=== PATIENT | female | born 1945 | race African-American/Black ===

== ENCOUNTER 2019-06-24 08:00 | Inpatient (IN) | payer OTHER ==
[2019-08-08 13:29] VITALS: BMI 20.5
[2019-08-09] MEDS ORDERED: HEPARIN NA (PORCINE) 5,000 UNITS/ML 1ML VIAL ONE (13:49)
[2019-08-09] MEDS ORDERED: THROMBIN (BOVINE) 5,000 UNIT VIAL TP ONE ×3 (13:49→16:07)
[2019-08-09] MEDS ORDERED: EPHEDRINE SULFATE/0.9% NACL/PF 50 MG/10 ML SYRINGE NR ONE (14:23)
[2019-08-09] MEDS ORDERED: DEXAMETHASONE SOD PHOSPHATE 4 MG/1 ML VIAL ONE (14:23)
[2019-08-09] MEDS ORDERED: PROPOFOL 20 ML ONE ×6 (14:23→16:06)
[2019-08-09] MEDS ORDERED: ONDANSETRON 4 MG/2 ML VIAL ONE ×2 (14:23→19:04)
[2019-08-09] MEDS ORDERED: ROCURONIUM BROMIDE 50 MG/5 ML SYRINGE ONE (14:24)
[2019-08-09] MEDS ORDERED: NEOSTIGMINE METHYLSULFATE 0.5 MG/1 ML - 10 ML MDV ONE (15:21)
[2019-08-09] MEDS ORDERED: VANCOMYCIN 1,000 MG VIAL (RESTRICTED TO ID ONLY) IVPB ONE (15:35)
[2019-08-09] MEDS ORDERED: ceFAZolin SODIUM 1 GM VIAL IVPB ONE (15:35)
[2019-08-09] MEDS ORDERED: ONDANSETRON 4 MG/2 ML VIAL IVPUSH PRN ×3 (16:16→17:29)
[2019-08-09] MEDS ORDERED: PROMETHAZINE HCL 25 MG/1 ML VIAL IVPB PRN (16:16)
[2019-08-09] MEDS ORDERED: DEXAMETHASONE SOD PHOSPHATE 4 MG/1 ML VIAL IVPUSH ONE (16:16)
[2019-08-09] MEDS ORDERED: PROMETHAZINE HCL 25 MG/1 ML VIAL IVPUSH PRN (16:16)
[2019-08-09] MEDS ORDERED: LACTATED RINGERS SOLUTION 1,000 ML IV SCH ×3 (16:30→20:40)
[2019-08-09] MEDS ORDERED: HYDROmorphone *PCA* 10MG/50ML DISP.SYRIN PCA SCH (16:30)
[2019-08-09] MEDS ORDERED: BENZOIN/ALOE VERA/STORAX/TOLU 58 ML BOTTLE ONE (17:05)
--- NOTE | 2019-08-09 17:20 | PN ---
Progress Note (short form) - Note Progress Note: 74F s/p C3-C4 anterior cervical discectomy and instrumented fusion POD #0. -Admit to ICU x 24 hrs. for airway observation; OK to discharge home or downgrade to floor if airway stable. -Maintain head of bed 30-45 degrees. -Pain medication: per anaesthesia team; oral meds (oxycodone preferred), no TOOLMAKER GRADE THREE ; NO NSAID's. -DVT PPx: -Mechanical only: EWELINA's, SCD's. -Post-op Ancef x 3 doses. -f/u AM labs. -Incentive spirometry. -PT/OT/Rehab, OOB. -WBAT B/L UE & LE. -d/c Troncoso catheter in PACU; f/u TOV (8 hours max). -Keep dressing clean & dry. -No heavy lifting (>5 lbs), bending or twisting x 6 months post op. -Start with soft diet; advance diet as tolerated. -B/L UE & LE NV checks. -Care per ICU & primary medical hospitalist teams. -Discharge planning: f/u [facility] [place] office 7-10 days post discharge; call for appointment; . Flash Antunez MD (Orthopaedic Surgery).
--- NOTE | 2019-08-09 17:26 | OP ---
Operative Note - Note: Operative Date: 08/09/19 Pre-Operative Diagnosis: 1. C3-C4 intervertebral disc herniation with myeloradiculopathy. 2. C3-C4 stenosis with neurogenic claudication. 3. Axial instability cervical spine with myofascial pain complex Operation: C3-C4 ACDF Findings: Improved IOM signals after C3-C4 decompression Implants: RTI Fortilink Tetrafuse [id number] cage. Precision Spine Slimplicity Plate: 14mm. 4 x 4x12mm screws Post-Operative Diagnosis: Same as Pre-op Surgeon: Flash Antunez It Intern: Ishan Antunez Anesthesiologist/PHOTOSTAT OPERATOR: Todd Marx Anesthesia: General Specimens Removed: C3-C4 disc Estimated Blood Loss (mls): 10 Fluid Volume Replaced (mls): 1,300 (Crystalloid) Operative Report Dictated: Yes
[2019-08-09] MEDS ORDERED: traMADol HCL 50 MG TABLET PO PRN (17:32)
--- NOTE | 2019-08-09 18:18 | OP ---
DATE OF OPERATION: DATE OF DICTATION: 08/09/2019 SURGEON: Flash Antunez MD BUNCH TRIMMER MOLD: Ishan Antunez MD PREOPERATIVE DIAGNOSIS: C3-4 disk prolapse with spinal stenosis, cervical spondylogenic myelopathy. POSTOPERATIVE DIAGNOSIS: Osteophyte disk complex stenosis, C3-4 with cervical spondylogenic myelopathy. PROCEDURES PERFORMED: 1. Anterior cervical diskectomy, C3-4. (59516) 2. Partial corpectomy, C3, partial corpectomy, C4. (81703, 06255) 3. Insertion of interbody cage with bone graft and anterior arthrodesis. (98215 ) 4. Anterior plating, C3-4. (59285) 5. Bone autograft (21857). 6. Bone allograft (30229). 7. Microsurgical Dissection (50006). ANESTHESIA: General. ANTIBIOTICS GIVEN: 2 g Ancef, 1 g vancomycin, 10 mg of Decadron preop. OPERATION DETAILS: With the patient in supine position, a bolster was placed behind the scapula. Prior to positioning as outlined above with the neck extended, motor evoked potentials were exhibited and then these were repeated once the patient was placed into the extended position the first one being with the patient in a neutral alignment position. No changes were observed by the neuromonitoring team. With the passage of time, however, this changed where biceps and triceps numbers seemed to drop down. SSEP monitoring remained neutral. The skin was prepped with Betadine scrub solution, wiped off with alcohol, DuraPrep applied. The window drape applied. Time-out was called. Imaging was available for intraoperative evaluation. An oblique incision was made in the lines of [place]. This was about a centimeter above the cricothyroid interval. The skin subcutaneous tissue was opened. The platysma was noted. This was transected. This took us directly to the lateral border of the strap muscles in the plane of what we call the fuzzies, that is the plane between the viscera and vessels. With digital palpation, the anterior vertebral bodies were palpated. Using a peanut, this plane was expanded down to the prevertebral fascia. A marker pin was placed into the C4-5 disk so that we knew exactly where the C3- 4 disk was. That is 1 level above that. The Bovie was utilized in order to free all the soft tissue off the anterior vertebral bodies and lift the longus colli approximately 1/2 cm off the bone to receive the teeth of the medial, lateral retractors. Excellent visualization achieved. [place] pins were placed in C3 and C4. Verification of the pin placement was on the lateral fluoroscopic x-ray. This confirmed our levels for dissection. Unipolar Bovie was utilized to disconnect the annulus from the bone bed anteriorly. Using a curette, the entire disk was resected. Using a 40-mm ascencion-tip bur, a rectangle was cut out of the bone thus performing a partial corpectomy at C3 and C4. This opened up the space nicely. Also, the posterior bone was resected using Kerrisons thus completing a partial corpectomy of C3 and C4 appropriately. The entire space opened. Slight, gentle, increased distraction was then applied. The posterior longitudinal ligament and remaining disk noted. This was resected using a No. 1, 1.5, and 2-mm [place] rongeurs freeing the cord completely. At that point, the neuromonitoring team after running a repeat motor evoked potentials revealed marked improvement in all settings, and that was reported as a most efficacious decompression having been achieved. The distraction was measured size 8, and a size 8-mm Fortilink spacer inserted. Bone graft was placed in the interspace. This was bone graft harvested from the patient herself; 1 mL of allograft DBX putty was used to help congeal the putty as well. This was inserted inside the actual cage. The distraction device was removed. The ligamentotaxis allowed the bony vertebral bodies to collapse onto the cage bringing about a snug fit. The cage was verified on lateral fluoroscopic x-ray. A 14-mm Simplicity plate was then applied fixed with 12 x 4-mm screws. Solid fixation achieved. The screw devices were locked into position by the locking device on the cage. The wounds were thoroughly lavaged out. Hemostasis was completely achieved. Valsalva maneuver at 30 cm revealed no extra bleeding. The wounds were then lavaged again and closed as follows: Platysma and investing lateral fascia No. 2-0 Vicryl, skin 3-0 Monocryl with Steri-Strips. Operation went extremely well. No complications. MD DONALDO Fierro/[id number] [facility]
--- NOTE | 2019-08-09 21:01 | CONSULT ---
Consultation: REQUESTING PROVIDER: Dr. Antunez CONSULT REQUEST: We have been asked to medically evaluate this patient for post op airway observation. HISTORY OF PRESENT ILLNESS: 74 yo f w/ PMH HTN, osteoporosis who is s/p C3-C4 anterior cervical discectomy and instrumented fusion POD #[address] Antunez. Patient lying in bed in NAD c/o soreness in the neck. no other complaints. History limited as the patient is drowsy post op. REVIEW OF SYSTEMS: unable to obtain as patient is drowsy post op. PHYSICAL EXAMINATION Vital Signs - 24 hr 08/09/19 08/09/19 08/09/19 10:32 10:53 17:27 Temperature 98.2 F 96.8 F L Pulse Rate 76 65 Respiratory 16 14 Rate Blood Pressure 121/59 L 121/61 O2 Sat by Pulse 100 100 Oximetry (%) 08/09/19 08/09/19 08/09/19 17:30 17:45 18:00 Temperature Pulse Rate 67 66 73 Respiratory 14 12 20 Rate Blood Pressure 120/76 123/63 129/68 O2 Sat by Pulse 100 100 100 Oximetry (%) 08/09/19 08/09/19 08/09/19 18:15 18:30 18:45 Temperature Pulse Rate 67 65 69 Respiratory 10 11 17 Rate Blood Pressure 132/66 133/66 135/70 O2 Sat by Pulse 100 100 100 Oximetry (%) 08/09/19 08/09/19 08/09/19 19:00 19:15 19:30 Temperature Pulse Rate 55 L 55 L 63 Respiratory 10 10 13 Rate Blood Pressure 125/66 125/66 127/60 O2 Sat by Pulse 100 100 100 Oximetry (%) 08/09/19 08/09/19 19:45 20:00 Temperature 98.2 F Pulse Rate 68 62 Respiratory 15 16 Rate Blood Pressure 128/63 126/62 O2 Sat by Pulse 100 100 Oximetry (%) GENERAL: drowsy but easily rousable to voice. surgical site dressing in midline neck clean/dry/intact HEAD: Normal with no signs of trauma. EYES: Pupils equal, round and reactive to light, extraocular movements intact, sclera anicteric, conjunctiva clear. No lid lag. NECK: ROM limited 2/2 pain. midline surgical site as described above LUNGS: Breath sounds equal, clear to auscultation bilaterally. No wheezes, and no crackles. No accessory muscle use. No stridor heard over the trachea HEART: Regular rate and rhythm, normal S1 and S2 without murmur, rub or gallop. ABDOMEN: Soft, nontender, not distended, normoactive bowel sounds, no guarding, no rebound, no masses. No hepatomegaly or splenomegaly. LOWER EXTREMITIES: 2+ pulses, warm, well-perfused. No calf tenderness. No peripheral edema. NEUROLOGICAL: limited 2/2 patient drowsiness Laboratory Results - last 24 hr 08/09/19 09:32 Blood Type B POSITIVE Antibody Screen Negative Active Medications Generic Name Dose Route Start Last Admin Trade Name Freq PRN Reason Stop Dose Admin Amlodipine Besylate 10 mg 08/10/19 10:00 Norvasc - PO DAILY [facility] Diphenhydramine HCl 12.5 mg 08/09/19 16:16 Benadryl Injection - IVPUSH ONCE PRN FOR ITCHING Donepezil HCl 5 mg 08/10/19 10:00 Aricept - PO DAILY [facility] Fentanyl 50 mcg 08/09/19 16:16 08/09/19 19:05 Sublimaze Injection - IVPUSH 50 mcg [id number] PRN Administration PAIN-PACU ORDER X 4 DOSES ONLY Hydrochlorothiazide 25 mg 08/10/19 10:00 Hctz - PO DAILY [facility] Hydromorphone HCl 10 mg 08/09/19 16:30 Hydromorphone 10 Mg/50 Ml-Ns ACCIDENT EXAMINER 08/16/19 16:16 ACCIDENT EXAMINER [facility] Protocol Cefazolin Sodium 1 gm in 50 mls @ 100 mls/hr 08/09/19 23:00 Ancef 1 Gm Premixed Ivpb - IVPB 08/10/19 11:29 Q6H [facility] Lactated Ringer's 1,000 mls @ 83 mls/hr 08/09/19 20:40 Lactated Ringers Solution IV ASDIR [facility] Metoprolol Tartrate 100 mg 08/10/19 10:00 Lopressor - PO DAILY [facility] Ondansetron HCl 4 mg 08/09/19 17:29 Zofran Injection IVPUSH Q6H PRN NAUSEA AND/OR VOMITING Promethazine HCl 12.5 mg 08/09/19 16:16 Phenergan Injection - IVPB Q6H PRN NAUSEA AND/OR VOMITING Promethazine HCl 12.5 mg 08/09/19 16:16 Phenergan Injection - IVPUSH Q6H PRN NAUSEA-FOR RESCUE AFTER 15 MIN Tramadol HCl 50 mg 08/09/19 17:32 Ultram - PO Q6H PRN PAIN LEVEL 6-10 ASSESSMENT/PLAN: 74 yo f w/ PMH HTN, osteoporosis who is s/p C3-C4 anterior cervical discectomy and instrumented fusion POD #[address] Antunez. #Neuro: -drowsy but easily rousable to voice. -moving all 4 limbs spontaneously -neuro checks #Pulmonary -Incentive spirometry [id number] -close airway observation overnight -saturating well on 2L NC #MSK -POD 0 C3-C4 anterior cervical discectomy and instrumented fusion -neurovascularly intact -post op management as per Dr. Antunez -Pain Ctrl with tramadol/oxycodone. NO ACCIDENT EXAMINER, NO NSAIDS -PT/OOB -HOB elevated 30-45 degrees #GI -soft diet; advance as tolerated #ID -post op ancef x 3 doses #FEN -LR @ 83 -will check lytes in am; replete PRN -soft diet #Prophy -Mechanical DVT prophylaxsis only #Dispo -observe post op in ICU -for downgrade to m/s if no events Visit type - Emergency Visit Emergency Visit: No - New Patient This patient is new to me today: Yes Date on this admission: 08/09/19 - Critical Care Critical Care patient: Yes Total Critical Care Time (in minutes): 40 Critical Care Statement: The care of this patient involved high complexity decision making to prevent further life threatening deterioration of the patient 's condition and/or to evaluate & treat vital organ system(s) failure or risk of failure. ATTENDING PHYSICIAN STATEMENT I saw and evaluated the patient. I reviewed the resident's note and discussed the case with the resident. I agree with the resident's findings and plan as documented. SUBJECTIVE: OBJECTIVE: ASSESSMENT AND PLAN:
[2019-08-09] MEDS ORDERED: CEFAZOLIN 1 GM/D5W 1 GM/50 ML BAG IVPB SCH (23:00)
[2019-08-09] MEDS ORDERED: ceFAZolin SODIUM 1 GM VIAL ONE (23:08)
[2019-08-09] MEDS ORDERED: DEXTROSE 5%-WATER - 50 ML IVPB ONE (23:08)
[2019-08-09] MEDS: CEFAZOLIN 1 GM in DEXTROSE 5%-WATER - 50 ML IVPB SCH (23:12)
[2019-08-10] MEDS ORDERED: CEFAZOLIN 1 GM in DEXTROSE 5%-WATER - 50 ML IVPB SCH (05:00)
[2019-08-10] MEDS ORDERED: ceFAZolin SODIUM 1 GM VIAL ONE ×4 (06:27→21:45)
[2019-08-10] MEDS ORDERED: DEXTROSE 5%-WATER - 100 ML IVPB ONE (06:27)
[2019-08-10] MEDS: CEFAZOLIN 1 GM in DEXTROSE 5%-WATER - 50 ML IVPB SCH ×4 (06:32→21:48)
--- NOTE | 2019-08-10 08:31 | PN ---
Progress Note (short form) - Note Progress Note: Anesthesia/pain Pt seen and examined S:Alert and awake comfortable O: Vital Signs Temperature 98.3 F 08/10/19 02:00 Pulse Rate 75 08/10/19 06:00 Respiratory Rate 18 08/10/19 06:00 Blood Pressure 120/62 08/10/19 06:00 O2 Sat by Pulse Oximetry (%) 100 08/09/19 21:00 A/P: s/p ACDF C3-C4 Doing well post op Continue current care Salas Martinez MD
[2019-08-10] MEDS ORDERED: PT OWN MED DRAWER 7, Y5N ONE (09:19)
[2019-08-10] MEDS ORDERED: DEXTROSE 5%-WATER - 50 ML IVPB ONE ×3 (09:19→21:46)
--- NOTE | 2019-08-10 09:58 | PN ---
Physical Exam: SUBJECTIVE: Patient seen and examined at bedside- no acute events overnight; patient states that she is feeling well denies any pain;l no dysphagia no problems breathing; has passed gas but not BM yet OBJECTIVE: Vital Signs Period Temp Pulse Resp BP Sys/Hatch Pulse Ox Last 24 Hr 96.8 F-98.3 F 55-78 10 117-135/59-76 97-100 GENERAL: The patient is awake, alert, and fully oriented, in no acute distress.. EYES: PEERLA; EOMI; no scleral icterus . NECK: no JVD; no lymphadenopathy. LUNGS: CTA B/L; no rales, rhonchi or wheezing HEART: Regular rate and rhythm, S1, S2 without murmur, rub or gallop. ABDOMEN: Soft, NT/ND +BS in all 4 quadrants EXTREMITIES: 2+ pulses, warm, well-perfused, no edema. NEUROLOGICAL: Cranial nerves II through XII grossly intact. Normal speech, gait not observed. UE strength 5/5 ; sensation intact; LE 5/5 strength and sensation intact PSYCH: Normal mood, normal affect. SKIN: Warm, dry, normal turgor, no rashes or lesions noted Laboratory Results - last 24 hr 08/09/19 09:32 Blood Type B POSITIVE Antibody Screen Negative Active Medications Generic Name Dose Route Start Last Admin Trade Name Inderq PRN Reason Stop Dose Admin Amlodipine Besylate 10 mg 08/10/19 10:00 08/10/19 09:32 Norvasc - PO 10 mg DAILY [facility] Administration Donepezil HCl 5 mg 08/10/19 10:00 08/10/19 09:32 Aricept - PO 5 mg DAILY [facility] Administration Hydrochlorothiazide 25 mg 08/10/19 10:00 08/10/19 09:32 Hctz - PO 25 mg DAILY [facility] Administration Lactated Ringer's 1,000 mls @ 83 mls/hr 08/09/19 20:40 08/09/19 23:13 Lactated Ringers Solution IV 83 mls/hr ASDIR [facility] Administration Cefazolin Sodium 1 gm/ 50 mls @ 100 mls/hr 08/09/19 23:00 08/10/19 09:31 Dextrose IVPB 08/10/19 22:59 100 mls/hr Q6H-IV [facility] Administration Metoprolol Tartrate 100 mg 08/10/19 10:00 08/10/19 09:31 Lopressor - PO 100 mg DAILY [facility] Administration Ondansetron HCl 4 mg 08/09/19 17:29 Zofran Injection IVPUSH Q6H PRN NAUSEA AND/OR VOMITING Tramadol HCl 50 mg 08/09/19 17:32 08/09/19 23:31 Ultram - PO 50 mg Q6H PRN Administration PAIN LEVEL 6-10 ASSESSMENT/PLAN: 74 yo f w/ PMH HTN, osteoporosis who is s/p C3-C4 anterior cervical discectomy and instrumented fusion POD #[address] Antunez. #Neuro POD #1 c3-c4 discectomy fully intact; neuro checks PT/ #Cardio HTN c/w home meds #GI soft diet monitor for dysphagia #ID post-op abx ancef for 24 hours #Pulm monitor for airway management F/E/N LR @83 monitor electrolytes soft diet dispo: transfer to floors Problem List - Problems (1) S/P discectomy Code(s): Z98.890 - OTHER SPECIFIED POSTPROCEDURAL STATES Visit type - Emergency Visit Emergency Visit: Yes ED Registration Date: 08/09/19 Care time: The patient presented to the Emergency Department on the above date and was hospitalized for further evaluation of their emergent condition. - New Patient This patient is new to me today: Yes Date on this admission: 08/10/19 - Critical Care Critical Care patient: Yes Total Critical Care Time (in minutes): 35 Critical Care Statement: The care of this patient involved high complexity decision making to prevent further life threatening deterioration of the patient 's condition and/or to evaluate & treat vital organ system(s) failure or risk of failure. ATTENDING PHYSICIAN STATEMENT I saw and evaluated the patient. I reviewed the resident's note and discussed the case with the resident. I agree with the resident's findings and plan as documented. SUBJECTIVE: OBJECTIVE: ASSESSMENT AND PLAN:
[2019-08-10] MEDS ORDERED: METOPROLOL TARTRATE 50 MG TABLET (FP) PO SCH (10:00)
[2019-08-10] MEDS ORDERED: DONEPEZIL HCL 5 MG TABLET (FP) PO SCH (10:00)
[2019-08-10] MEDS ORDERED: amLODIPine BESYLATE 10 MG TABLET (FP) PO SCH (10:00)
[2019-08-10] MEDS ORDERED: HYDROCHLOROTHIAZIDE 25 MG TABLET (FP) PO SCH (10:00)
--- NOTE | 2019-08-10 10:17 | PN ---
Teaching Attending Note Name of Resident: Kaleigh Godoy ATTENDING PHYSICIAN STATEMENT I saw and evaluated the patient. I reviewed the resident's note and discussed the case with the resident. I agree with the resident's findings and plan as documented. SUBJECTIVE: Patient seen and examined in the ICU. Awake and alert. No pain. Does not realize she already had the surgery. Denies CP or SOB. Swallowing intact. Intake & Output 08/07/19 08/08/19 08/09/19 08/10/19 23:59 23:59 23:59 23:59 Intake Total 1550 640 Output Total 2110 800 Balance -560 -160 Weight 105 lb 105 lb Last Vital Signs Temp Pulse Resp BP Pulse Ox 98.3 F 78 16 120/62 97 08/10/19 08:47 08/10/19 08:47 08/10/19 08:47 08/10/19 08:47 08/10/19 08:47 Active Medications Amlodipine Besylate (Norvasc -) 10 mg PO DAILY [facility] Last Admin: 08/10/19 09:32 Dose: 10 mg Donepezil HCl (Aricept -) 5 mg PO DAILY [facility] Last Admin: 08/10/19 09:32 Dose: 5 mg Hydrochlorothiazide (Hctz -) 25 mg PO DAILY [facility] Last Admin: 08/10/19 09:32 Dose: 25 mg Lactated Ringer's (Lactated Ringers Solution) 1,000 mls @ 83 mls/hr IV ASDIR [facility] Last Admin: 08/09/19 23:13 Dose: 83 mls/hr Cefazolin Sodium 1 gm/ (Dextrose) 50 mls @ 100 mls/hr IVPB Q6H-IV [facility] Stop: 08/10/19 22:59 Last Admin: 08/10/19 09:31 Dose: 100 mls/hr Metoprolol Tartrate (Lopressor -) 100 mg PO DAILY [facility] Last Admin: 08/10/19 09:31 Dose: 100 mg Ondansetron HCl (Zofran Injection) 4 mg IVPUSH Q6H PRN PRN Reason: NAUSEA AND/OR VOMITING Tramadol HCl (Ultram -) 50 mg PO Q6H PRN PRN Reason: PAIN LEVEL 6-10 Last Admin: 08/09/19 23:31 Dose: 50 mg Laboratory Results - last 24 hr 08/09/19 09:32 Blood Type B POSITIVE Antibody Screen Negative ASSESSMENT/PLAN: POD#1: C3-C4 anterior cervical discectomy HTN Dementia PT Incentive Spirometry VTE prophylaxis PO As tolerated Floor Dr Haines
[2019-08-10] MEDS ORDERED: ONDANSETRON 4 MG/2 ML VIAL IVPUSH PRN (11:40)
--- NOTE | 2019-08-10 12:25 | PN ---
Progress Note (short form) - Note Progress Note: POD#1 Transferred from ICU Now on the floor Comfortable C/O incisional pain Walked in the hallway. Already feels a difference Improved strength and balance Wound Dry No swelling Voice normal Swallowing mild discomfort but no aspiration Neuro SCRIPT WORKER and peripheral Fully intact ASSES Marked improvement in neurological function PLAN Mobilize FWBAT D/C planning home ? tomorrow Pain mx
[2019-08-10] MEDS: LACTATED RINGERS SOLUTION 1,000 ML IV SCH (16:49)
--- NOTE | 2019-08-10 17:21 | PN ---
Progress Note (short form) - Note Progress Note: She is much better has no pain out of bed. No fever no chills rest of review of systems are negative Vital Signs Period Temp Pulse Resp BP Sys/Hatch Pulse Ox Last 24 Hr 96.8 F-98.3 F 55-78 10-20 117-135/60-76 97-100 Patient is comfortable HEENT normal Neck supple no JVD Lungs clear no wheezing Abdomen nontender no organomegaly bowel sounds normal Extremities no edema no cyanosis normal pulses Neurologically he is alert awake oriented, nonfocal Skin no rash noted Assessment and plan Status post spinal surgery Out of bed continue current medications seen by neurosurgeon follow-up very satisfied patient has been transferred to the floor from ICU. Visit type - Emergency Visit Emergency Visit: Yes ED Registration Date: 08/09/19 Care time: The patient presented to the Emergency Department on the above date and was hospitalized for further evaluation of their emergent condition. - New Patient This patient is new to me today: Yes Date on this admission: 08/10/19 - Critical Care Critical Care patient: No - Discharge Referral Referred to [facility] No
[2019-08-11 08:41] LABS: BASO % 0.3 % (0-2.0); EOS % 0.8 % (0-4.5); HEMATOCRIT 30.3 % (32.4-45.2); HEMOGLOBIN 10.5 GM/dL (10.7-15.3); LYMPH % 15.1 % (8-40); MCH 31.6 pg (25.7-33.7); MCHC 34.7 g/dl (32.0-36.0); MEAN CELL VOLUME 91.2 fl (80-96); MEAN PLT VOLUME 7.5 fl (7.5-11.1); MONO % 10.4 % (3.8-10.2); NEUT % 73.4 % (42.8-82.8); PLATELET COUNT 168 K/MM3 (134-434); RBC 3.32 M/mm3 (3.60-5.2); RDW 13.6 % (11.6-15.6); WHITE BLOOD COUNT 10.4 K/mm3 (4.0-10.0)
[2019-08-11 09:05] LABS: ALBUMIN 3.3 g/dl (3.4-5.0); BILIRUBIN,TOTAL 0.6 mg/dL (0.2-1); BLOOD UREA NITROGEN 17.8 mg/dL (7-18); CALCIUM 8.3 mg/dL (8.5-10.1); CREATININE 1.1 mg/dL (0.55-1.3); MAGNESIUM 1.7 mg/dL (1.8-2.4); POTASSIUM 3.5 mmol/L (3.5-5.1); TOT PROT 6.9 g/dl (6.4-8.2)
[2019-08-11] MEDS: DONEPEZIL HCL 5 MG TABLET (FP) PO SCH (10:58)
[2019-08-11] MEDS: HYDROCHLOROTHIAZIDE 25 MG TABLET (FP) PO SCH (10:58)
[2019-08-11] MEDS: METOPROLOL TARTRATE 50 MG TABLET (FP) PO SCH (10:58)
[2019-08-11] MEDS: traMADol HCL 50 MG TABLET PO PRN (10:59)
[2019-08-11] MEDS: amLODIPine BESYLATE 10 MG TABLET (FP) PO SCH (11:00)
--- NOTE | 2019-08-11 14:48 | PN ---
Progress Note (short form) - Note Progress Note: She is much better has no pain out of bed. No fever no chills rest of review of systems are negative Vital Signs Period Temp Pulse Resp BP Sys/Hatch Pulse Ox Last 24 Hr 97.8 F-98.1 F 68-91 18-20 118-143/62-70 97 Patient is comfortable HEENT normal Neck supple no JVD Lungs clear no wheezing Abdomen nontender no organomegaly bowel sounds normal Extremities no edema no cyanosis normal pulses Neurologically he is alert awake oriented, nonfocal Skin no rash noted Assessment and plan Status post spinal surgery Out of bed continue current medications seen by neurosurgeon follow-up Out of bed on the floorShe went to bathroom no other complaints. Visit type - Emergency Visit Emergency Visit: Yes ED Registration Date: 08/09/19 Care time: The patient presented to the Emergency Department on the above date and was hospitalized for further evaluation of their emergent condition. - New Patient This patient is new to me today: No - Critical Care Critical Care patient: No - Discharge Referral Referred to [facility] No
[2019-08-11] MEDS: LACTATED RINGERS SOLUTION 1,000 ML IV SCH (21:44)
--- NOTE | 2019-08-12 07:23 | PN ---
Physical Exam: SUBJECTIVE: Patient seen and examined No acute events over night , deneis any fever , chills, N/V/D/C possible DC in AM OBJECTIVE: Vital Signs Period Temp Pulse Resp BP Sys/Hatch Pulse Ox Last 24 Hr 97.9 F-99 F 65-96 20-20 105-132/48-70 97 GENERAL: AAOx3 in NAD HEAD: NC/AT EYES: EOMI, Conjunctiva clear, sclera anicteric ENT: moist mucous membrane NECK: Supple, no JVD LUNGS: CTA B/L, no crackles no wheezing no accessory muscle use. HEART: RRR, NSR, normal s1, s2, murmur no M/R/G ABDOMEN: Soft, ND, NT, +BS 4 Q, no CVA Tenderness LOWER EXTREMITIES: no edema, +2DP pulse, NEUROLOGICAL: No focal deficit. move all ext , sensation intact , Normal speech. gait not observed. PSYCHIATRIC: Cooperative. Good eye contact. Appropriate mood and affect. SKIN: Warm, dry, Laboratory Results - last 24 hr 08/11/19 08/11/19 07:48 07:48 WBC 10.4 H RBC 3.32 L Hgb 10.5 L Hct 30.3 L MCV 91.2 MCH 31.6 MCHC 34.7 RDW 13.6 Plt Count 168 MPV 7.5 Absolute Neuts (auto) 7.7 Neutrophils % 73.4 Lymphocytes % 15.1 Monocytes % 10.4 H Eosinophils % 0.8 Basophils % 0.3 Nucleated RBC % 0 Sodium 140 Potassium 3.5 Chloride 106 Carbon Dioxide 27 Anion Gap 8 BUN 17.8 Creatinine 1.1 Est GFR (CKD-EPI)AfAm 56.87 Est GFR (CKD-EPI)NonAf 49.07 Random Glucose 96 Calcium 8.3 L Phosphorus 3.0 Magnesium 1.7 L Total Bilirubin 0.6 AST 19 ALT 14 Alkaline Phosphatase 44 L Total Protein 6.9 Albumin 3.3 L Active Medications Generic Name Dose Route Start Last Admin Trade Name Freq PRN Reason Stop Dose Admin Amlodipine Besylate 10 mg 08/11/19 10:00 08/11/19 11:00 Norvasc - PO 10 mg DAILY [facility] Administration Donepezil HCl 5 mg 08/11/19 10:00 08/11/19 10:58 Aricept - PO 5 mg DAILY [facility] Administration Hydrochlorothiazide 25 mg 08/11/19 10:00 08/11/19 10:58 Hctz - PO 25 mg DAILY [facility] Administration Lactated Ringer's 1,000 mls @ 83 mls/hr 08/10/19 11:40 08/11/19 21:44 Lactated Ringers Solution IV 83 mls/hr ASDIR [facility] Administration Metoprolol Tartrate 100 mg 08/11/19 10:00 08/11/19 10:58 Lopressor - PO 100 mg DAILY [facility] Administration Ondansetron HCl 4 mg 08/10/19 11:40 Zofran Injection IVPUSH Q6H PRN NAUSEA AND/OR VOMITING Tramadol HCl 50 mg 08/10/19 11:40 08/11/19 10:59 Ultram - PO 50 mg Q6H PRN Administration PAIN LEVEL 6-10 CBC, BMP 08/12/19 09:15 08/11/19 07:48 ASSESSMENT/PLAN: 74 yo f w/ PMH HTN, osteoporosis who is s/p C3-C4 anterior cervical discectomy and instrumented fusion POD #[address] Antunez. #Neuro POD #3 c3-c4 discectomy ACDF * fully intact; * neuro checks * PT walked 110 step * soft diet * monitor for dysphagia * post-op abx ancef for 24 hours * monitor for airway management * possible dc in [place] * pain is controlled by tramadol 50 Q 6hr * # Anemia normochrmoic normocytic , work up as out pt , no active bleeding currently monitor H/H daily #HTN * c/w home meds Amlodipin and HCTZ and Lopressor 100 mg daily # slight Alzhiemer Dementia on Donipezil 5 mg daily #F/E/N * no standing fluids * monitor electrolytes * soft diet #dispo: DC in AM Visit type - Emergency Visit Emergency Visit: Yes ED Registration Date: 08/09/19 Care time: The patient presented to the Emergency Department on the above date and was hospitalized for further evaluation of their emergent condition. - New Patient This patient is new to me today: Yes Date on this admission: 08/12/19 - Critical Care Critical Care patient: No ATTENDING PHYSICIAN STATEMENT I saw and evaluated the patient. I reviewed the resident's note and discussed the case with the resident. I agree with the resident's findings and plan as documented. SUBJECTIVE: OBJECTIVE: ASSESSMENT AND PLAN:
[2019-08-12] MEDS ORDERED: PT OWN MED DRAWER 7, Y5N ONE (09:42)
[2019-08-12 09:44] LABS: BASO % 0.6 % (0-2.0); EOS % 1.9 % (0-4.5); HEMATOCRIT 26.9 % (32.4-45.2); HEMOGLOBIN 9.2 GM/dL (10.7-15.3); LYMPH % 21.8 % (8-40); MCH 31.6 pg (25.7-33.7); MCHC 34.2 g/dl (32.0-36.0); MEAN CELL VOLUME 92.4 fl (80-96); MEAN PLT VOLUME 7.3 fl (7.5-11.1); MONO % 13.4 % (3.8-10.2); NEUT % 62.3 % (42.8-82.8); PLATELET COUNT 156 K/MM3 (134-434); RBC 2.91 M/mm3 (3.60-5.2); RDW 13.7 % (11.6-15.6)
[2019-08-12] MEDS: DONEPEZIL HCL 5 MG TABLET (FP) PO SCH (10:00)
[2019-08-12] MEDS: HYDROCHLOROTHIAZIDE 25 MG TABLET (FP) PO SCH (10:01)
[2019-08-12] MEDS: METOPROLOL TARTRATE 50 MG TABLET (FP) PO SCH (10:01)
[2019-08-12] MEDS: amLODIPine BESYLATE 10 MG TABLET (FP) PO SCH (10:01)
--- NOTE | 2019-08-12 10:28 | PN ---
Teaching Attending Note Name of Resident: Migel Jara ATTENDING PHYSICIAN STATEMENT I saw and evaluated the patient. I reviewed the resident's note and discussed the case with the resident. I agree with the resident's findings and plan as documented. SUBJECTIVE: Patient complains of difficulty swallowing. OBJECTIVE: Vital Signs Period Temp Pulse Resp BP Sys/Hatch Pulse Ox Last 24 Hr 97.9 F-98.4 F 65-91 20-20 105-132/48-70 HEART: S1S2, RRR LUNGS: Clear ABDOMEN: Soft, non-tender, non-distended, normal BS EXTREMITIES: No edema Laboratory Results - last 24 hr 08/12/19 09:15 WBC 8.0 RBC 2.91 L Hgb 9.2 L Hct 26.9 L MCV 92.4 MCH 31.6 MCHC 34.2 RDW 13.7 Plt Count 156 MPV 7.3 L Absolute Neuts (auto) 5.0 Neutrophils % 62.3 Lymphocytes % 21.8 D Monocytes % 13.4 H Eosinophils % 1.9 D Basophils % 0.6 Nucleated RBC % 0 Current Medications Generic Name Dose Route Start Last Admin Trade Name Freq PRN Reason Stop Dose Admin Amlodipine Besylate 10 mg 08/11/19 10:00 08/12/19 10:01 Norvasc - PO 10 mg DAILY VANDANA Administration Donepezil HCl 5 mg 08/11/19 10:00 08/12/19 10:00 Aricept - PO 5 mg DAILY VANDANA Administration Hydrochlorothiazide 25 mg 08/11/19 10:00 08/12/19 10:01 Hctz - PO 25 mg DAILY VANDANA Administration Lactated Ringer's 1,000 mls @ 83 mls/hr 08/10/19 11:40 08/11/19 21:44 Lactated Ringers Solution IV 83 mls/hr ASDIR VANDANA Administration Metoprolol Tartrate 100 mg 08/11/19 10:00 08/12/19 10:01 Lopressor - PO 100 mg DAILY VANDANA Administration Ondansetron HCl 4 mg 08/10/19 11:40 Zofran Injection IVPUSH Q6H PRN NAUSEA AND/OR VOMITING Tramadol HCl 50 mg 08/10/19 11:40 08/11/19 10:59 Ultram - PO 50 mg Q6H PRN Administration PAIN LEVEL 6-10 ASSESSMENT AND PLAN: This is a 74 year old woman with a history of HTN, osteoporosis who presented for C-spine surgery. 1. 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 HTN - Continue Norvasc, HCTZ, Lopressor
[2019-08-12] MEDS: traMADol HCL 50 MG TABLET PO PRN (13:01)
[2019-08-12] MEDS: LACTATED RINGERS SOLUTION 1,000 ML IV SCH (13:53)
--- NOTE | 2019-08-13 06:14 | PN ---
Physical Exam: SUBJECTIVE: Patient seen and examined OBJECTIVE: Vital Signs Period Temp Pulse Resp BP Sys/Hatch Pulse Ox Last 24 Hr 98.1 F-98.7 F 64-82 20-20 105-125/51-60 98 GENERAL: The patient is awake, alert, and fully oriented, in no acute distress. HEAD: Normal with no signs of trauma. EYES: PERRL, extraocular movements intact, sclera anicteric, conjunctiva clear. No ptosis. ENT: Ears normal, nares patent, oropharynx clear without exudates, moist mucous membranes. NECK: Trachea midline, full range of motion, supple. LUNGS: Breath sounds equal, clear to auscultation bilaterally, no wheezes, no crackles, no accessory muscle use. HEART: Regular rate and rhythm, S1, S2 without murmur, rub or gallop. ABDOMEN: Soft, nontender, nondistended, normoactive bowel sounds, no guarding, no rebound, no hepatosplenomegaly, no masses. EXTREMITIES: 2+ pulses, warm, well-perfused, no edema. NEUROLOGICAL: Cranial nerves II through XII grossly intact. Normal speech, gait not observed. PSYCH: Normal mood, normal affect. SKIN: Warm, dry, normal turgor, no rashes or lesions noted Laboratory Results - last 24 hr 08/12/19 09:15 WBC 8.0 RBC 2.91 L Hgb 9.2 L Hct 26.9 L MCV 92.4 MCH 31.6 MCHC 34.2 RDW 13.7 Plt Count 156 MPV 7.3 L Absolute Neuts (auto) 5.0 Neutrophils % 62.3 Lymphocytes % 21.8 D Monocytes % 13.4 H Eosinophils % 1.9 D Basophils % 0.6 Nucleated RBC % 0 Active Medications Generic Name Dose Route Start Last Admin Trade Name Freq PRN Reason Stop Dose Admin Amlodipine Besylate 10 mg 08/11/19 10:00 08/12/19 10:01 Norvasc - PO 10 mg DAILY VANDANA Administration Donepezil HCl 5 mg 08/11/19 10:00 08/12/19 10:00 Aricept - PO 5 mg DAILY VANDANA Administration Hydrochlorothiazide 25 mg 08/11/19 10:00 08/12/19 10:01 Hctz - PO 25 mg DAILY VANDANA Administration Lactated Ringer's 1,000 mls @ 83 mls/hr 08/10/19 11:40 08/12/19 13:53 Lactated Ringers Solution IV Not Given ASDIR VANDANA Metoprolol Tartrate 100 mg 08/11/19 10:00 08/12/19 10:01 Lopressor - PO 100 mg DAILY VANDANA Administration Ondansetron HCl 4 mg 08/10/19 11:40 Zofran Injection IVPUSH Q6H PRN NAUSEA AND/OR VOMITING Tramadol HCl 50 mg 08/10/19 11:40 08/12/19 13:01 Ultram - PO 50 mg Q6H PRN Administration PAIN LEVEL 6-10 ASSESSMENT/PLAN: ATTENDING PHYSICIAN STATEMENT I saw and evaluated the patient. I reviewed the resident's note and discussed the case with the resident. I agree with the resident's findings and plan as documented. SUBJECTIVE: OBJECTIVE: ASSESSMENT AND PLAN:
[2019-08-13 08:31] LABS: EOS % 0.3 % (0-4.5); HEMATOCRIT 32.3 % (32.4-45.2); LYMPH % 19.3 % (8-40); MCH 31.1 pg (25.7-33.7); MCHC 34.1 g/dl (32.0-36.0); MEAN CELL VOLUME 91.3 fl (80-96); MEAN PLT VOLUME 7.7 fl (7.5-11.1); MONO % 8.3 % (3.8-10.2); NEUT % 71.1 % (42.8-82.8); PLATELET COUNT 185 K/MM3 (134-434); RBC 3.54 M/mm3 (3.60-5.2); RDW 13.8 % (11.6-15.6); WHITE BLOOD COUNT 10.3 K/mm3 (4.0-10.0)
[2019-08-13 08:49] LABS: ALBUMIN 3.4 g/dl (3.4-5.0); BILIRUBIN,TOTAL 0.7 mg/dL (0.2-1); BLOOD UREA NITROGEN 20.2 mg/dL (7-18); CALCIUM 8.6 mg/dL (8.5-10.1); CREATININE 0.9 mg/dL (0.55-1.3); MAGNESIUM 1.7 mg/dL (1.8-2.4); PHOSPHOROUS 3.3 mg/dL (2.5-4.9); POTASSIUM 3.7 mmol/L (3.5-5.1); TOT PROT 7.4 g/dl (6.4-8.2)
[2019-08-13] MEDS ORDERED: MAGNESIUM SULF 50% (8.12 MEQ/2 ML-1 GM VIAL) IVPB ONE (09:02)
[2019-08-13 09:33] VITALS: BP 115/64; PULSE 99; TEMP 98.1
[2019-08-13] MEDS: amLODIPine BESYLATE 10 MG TABLET (FP) PO SCH (09:33)
[2019-08-13] MEDS: traMADol HCL 50 MG TABLET PO PRN (09:33)
[2019-08-13] MEDS: METOPROLOL TARTRATE 50 MG TABLET (FP) PO SCH (09:34)
[2019-08-13] MEDS: HYDROCHLOROTHIAZIDE 25 MG TABLET (FP) PO SCH (09:34)
[2019-08-13] MEDS: DONEPEZIL HCL 5 MG TABLET (FP) PO SCH (09:34)
--- NOTE | 2019-08-13 16:17 | PATH ---
Surgical Pathology Report Patient Name: ALESSIO ENRIQUEZ Med. Rec. #: [id number] /Age/Gender: 1945 (Age: 74) / F Account: [id number] Location: [facility] MED/SURG Taken: 08/09/2019 Received: 08/12/2019 Reported: 08/13/2019 Physicians: Flash Antunez M.D. Specimen(s) Received C3-4 DISC Clinical History Cervical disc disorder Final Diagnosis DISC, C3-4, ANTERIOR CERVICAL DISCECTOMY: BENIGN INTEVERTEBRAL DISC TISSUE. Electronically Signed Adriane Patterson M.D. Gross Description Received in formalin labeled "C3-4 disc," is a 3.0 x 2.5 x 0.3 cm aggregate of hutchinson fragments of fibrocartilaginous tissue. A technical services representative portion is submitted in one cassette. /08/12/2019 [facility]08/12/2019
--- NOTE | 2019-08-13 17:56 | DS ---
Physical Exam: SUBJECTIVE: Patient seen and examined No acute events over night , denies any fever , chills, N/V/D/C stable to dc home with walker , OBJECTIVE: Vital Signs Period Temp Pulse Resp BP Sys/Hatch Pulse Ox Last 24 Hr 98.1 F-98.7 F 71-99 18-20 111-118/53-64 98 PHYSICAL EXAM GENERAL: AAOx3 in NAD , anterior surgical wound cover with gauze HEAD: NC/AT EYES: EOMI, Conjunctiva clear, sclera anicteric ENT: moist mucous membrane NECK: Supple, no JVD LUNGS: CTA B/L, no crackles no wheezing no accessory muscle use. HEART: RRR, NSR, normal s1, s2, murmur no M/R/G ABDOMEN: Soft, ND, NT, +BS 4 Q, no CVA Tenderness LOWER EXTREMITIES: no edema, +2DP pulse, NEUROLOGICAL: No focal deficit. move all ext , sensation intact , Normal speech. gait not observed. PSYCHIATRIC: Cooperative. Good eye contact. Appropriate mood and affect. SKIN: Warm, dry, LABS Laboratory Results - last 24 hr 08/13/19 08/13/19 07:35 07:35 WBC 10.3 H RBC 3.54 L Hgb 11.0 Hct 32.3 L D MCV 91.3 MCH 31.1 MCHC 34.1 RDW 13.8 Plt Count 185 MPV 7.7 Absolute Neuts (auto) 7.3 Neutrophils % 71.1 Lymphocytes % 19.3 Monocytes % 8.3 Eosinophils % 0.3 D Basophils % 1.0 Nucleated RBC % 0 Sodium 140 Potassium 3.7 Chloride 105 Carbon Dioxide 26 Anion Gap 9 BUN 20.2 H Creatinine 0.9 Est GFR (CKD-EPI)AfAm 72.49 Est GFR (CKD-EPI)NonAf 62.55 Random Glucose 108 H Calcium 8.6 Phosphorus 3.3 Magnesium 1.7 L Total Bilirubin 0.7 AST 22 ALT 17 Alkaline Phosphatase 53 Total Protein 7.4 Albumin 3.4 CBC, BMP 08/13/19 07:35 08/13/19 07:35 HOSPITAL COURSE: Date of Admission:08/09/19 Date of Discharge: 08/13/19 74 yo f w/ PMH HTN, osteoporosis who is s/p C3-C4 anterior cervical discectomy and instrumented fusion POD #[address] Antunez. #Neuro POD #4 c3-c4 discectomy ACDF * fully intact; * neuro checks * PT walked 110 step * soft diet * monitor for dysphagia * post-op abx ancef for 24 hours * monitor for airway management * possible dc in [place] * pain is controlled by tramadol 50 Q 6hr * follow up with primary care physiican and neuro surgery within one week * avoid heavy lifting or bending # Anemia normochrmoic normocytic , work up as out pt , no active bleeding currently monitor H/H daily #HTN * c/w home meds Amlodipin and HCTZ and Lopressor 100 mg daily # slight Alzhiemer Dementia on Donipezil 5 mg daily #dispo: DC home with walker Minutes to complete discharge: 50 Discharge Summary Problems reviewed: Yes Reason For Visit: CERVICAL DISC DISORDER Condition: Stable - Instructions Diet, Activity, Other Instructions: You presented to the hospital for neck surgery with Dr Antunez , Surgery went well and you will be discharged home. Please take tylenol as needed for pain , Please avoid any NSAIDS (Aspirin , Advil, Ibuprofen ... ) You can use miralax as needed for constipation Please resume all other home medication as before admission Please monitor your blood pressure closely at home and hold on your Blood pressure medication if the high number below 100 please keep the collar per Dr Antunez instruction till you see him please avoid heavy lifting more than 5 pounds please use walker when you are walking and take your time when you get out of bed to avoid any falls Please keep wound clean and dry please follow up with Dr Tulio Vidales within one week please follow up with your primary within one week if you develop fever, chills, chest pain , neck pain , palpitation , dizziness call 911 or return to emergency room Referrals: Flash Antunez MD [Staff Physician] - Disposition: HOME - Home Medications Comprehensive Discharge Medication List: Ambulatory Orders Donepezil HCl 5 mg PO DAILY 01/30/19 Ibandronate Sodium 150 mg PO MONTHLY 01/30/19 Amlodipine Besylate 10 mg PO DAILY #30 tab 08/13/19 Metoprolol/Hydrochlorothiazide [Metoprolol-Hctz 100-25 mg Tab] 1 each PO DAILY 30 Days #30 tab MDD 1 08/13/19 Miscellaneous Medical Supply [Outpatient Order] 1 each ASDIR #1 misc Miscellaneous Medical Supply [Outpatient Order] 1 each ASDIR #1 misc Polyethylene Glycol 3350 [Miralax (For Daily Use) -] 17 gm PO DAILY #1 bottle This patient is new to me today: No Emergency Visit: Yes ED Registration Date: 08/09/19 Care time: The patient presented to the Emergency Department on the above date and was hospitalized for further evaluation of their emergent condition. Critical Care patient: No - Discharge Referral Referred to [facility] Med P.C[facility] No ATTENDING PHYSICIAN STATEMENT I saw and evaluated the patient. I reviewed the resident's note and discussed the case with the resident. I agree with the resident's findings and plan as documented. SUBJECTIVE: OBJECTIVE: ASSESSMENT AND PLAN:
--- NOTE | 2019-08-14 22:10 | PN ---
Teaching Attending Note Name of Resident: Migel Jara ATTENDING PHYSICIAN STATEMENT I saw and evaluated the patient. I reviewed the resident's note and discussed the case with the resident. I agree with the resident's findings and plan as documented. SUBJECTIVE: Patient seen at bedside, in good spirits, endorses mild dysphagia otherwise able to tolerating PO, VSS. Objective: HEART: S1S2, RRR LUNGS: Clear ABDOMEN: Soft, non-tender, non-distended, normal BS EXTREMITIES: No edema A/P: 74 year old woman with a history of HTN, osteoporosis who presented for C-spine surgery. 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 BP meds Mild dementia cont. Donepezil 5mg daily DIspo: DC home with rollator walker
== END 2019-08-13 14:22 | disposition home or self-care (01) | DRG 472 ==
LOC: EDSTATUS 08:00 → JSAMEDAYSX 08-09 09:22 → JICU 08-09 20:26 → J8W 08-10 11:42
PROVIDERS: ADMIT Orthopaedic Surgery Orthopaedic Surgery of the Spine
PROC: 0RG10A0 Fusion of Cervical Vertebral Joint with Interbody Fusion Device, Anterior Approach, Anterior Column, Open Approach (ICD-10-PCS; 2019-08-09)
PROC: 4A10X4G Monitoring of Central Nervous Electrical Activity, Intraoperative, External Approach (ICD-10-PCS; 2019-08-09)
PROC: B01BZZZ Fluoroscopy of Spinal Cord (ICD-10-PCS; 2019-08-09)
PROC: 0RT30ZZ Resection of Cervical Vertebral Disc, Open Approach (ICD-10-PCS; principal; 2019-08-09 11:00)
DX: M50.11 Cervical disc disorder with radiculopathy, high cervical region (principal); M47.12 Other spondylosis with myelopathy, cervical region; M48.02 Spinal stenosis, cervical region; I10 Essential (primary) hypertension; M81.0 Age-related osteoporosis without current pathological fracture; F03.90 Unspecified dementia, unspecified severity, without behavioral disturbance, psychotic disturbance, mood disturbance, and anxiety
CPT/HCPCS: 36415; 72050-TC-FY; 76000-TC-FY; 80053; 83735; 84100; 85025; 86850; 86900; 86901; 88304-TC; 94010; 94760; 97116-GP; 97161-GP; J1644